=== PATIENT | male | born 1960 | race Caucasian/White ===

== ENCOUNTER → 2017-03-19 | Outpatient (CLI) | payer MEDICAID | LOC: BMCIMAGING 15:25 | PROVIDERS: ATTEND Family Medicine | DX: S49.92XA Unspecified injury of left shoulder and upper arm, initial encounter (principal); S89.92XA Unspecified injury of left lower leg, initial encounter; S99.912A Unspecified injury of left ankle, initial encounter; M19.012 Primary osteoarthritis, left shoulder ==

== ENCOUNTER 2017-03-20 21:31 | Emergency (ER) | payer MEDICAID ==
[2017-03-20 21:47] VITALS: RESP 16
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
[2017-03-20 22:23] LABS: HEMATOCRIT 41.5 % (40.0-51.0); HEMOGLOBIN 14.6 g/dL (13.7-17.5); MEAN CELL HEMOGLOBIN CONCENTR. 35.2 g/dL (32.4-36.7); MEAN CELL VOLUME 88.1 fL (81.5-99.8); RED BLOOD CELL COUNT 4.71 10^6/uL (4.40-6.38); RED CELL DISTRIBUTION WIDTH 12.7 % (11.5-15.2)
[2017-03-20 22:34] LABS: ANION GAP 12 mEq/L (8-16); CALCIUM 9.6 mg/dL (8.5-10.4); CARBON DIOXIDE 25 mEq/l (22-31); CHLORIDE 104 mEq/L (97-110); CREATININE 1.2 mg/dL (0.7-1.3); GLOMERULAR FILTRATION RATE > 60; GLUCOSE 112 mg/dL (70-100); POTASSIUM 4.3 mEq/L (3.5-5.2); SODIUM 141 mEq/L (134-144)
[2017-03-20 22:48] VITALS: TEMP 98.1
[2017-03-21] MEDS ORDERED: CYCLOBENZAPRINE 10MG PREPACK#3 BTL TAKEHOME ONE (00:05)
[2017-03-21 00:23] VITALS: BP 154/88; PULSE 87; O2SAT 97
== END 2017-03-21 00:31 | disposition home or self-care (01) ==
DX: S80.12XA Contusion of left lower leg, initial encounter (principal); V27.0XXA Motorcycle driver injured in collision with fixed or stationary object in nontraffic accident, initial encounter

== ENCOUNTER 2017-08-15 13:36 | Day surgery (SDC) | payer MEDICAID ==
[2017-08-15] MEDS ORDERED: FAMOTIDINE 20 MG TAB PO ONE (13:40)
[2017-08-15] MEDS ORDERED: NS 1,000 ML IV ONE (13:40)
[2017-08-15] MEDS ORDERED: diphenhydrAMINE 25 MG CAP PO ONE (13:40)
[2017-08-15] MEDS ORDERED: ASPIRIN EC 325 MG TAB PO ONE (13:40)
[2017-08-15] MEDS ORDERED: DIAZEPAM 5 MG TAB PO ONE (13:40)
--- NOTE | 2017-08-15 14:03 | CPEKG ---
Heart Rate: 93 RR Interval: 645 P-R Interval: 144 QRSD Interval: 90 QT Interval: 368 QTC Interval: 458 P Thermal: 67 QRS Thermal: 45 T Wave Thermal: 46 EKG Severity - NORMAL ECG - EKG Impression: SINUS RHYTHM Electronically Signed By: Deborah Medellin 15-Aug-2017 14:28:22
[2017-08-15 14:20] LABS: % IMMATURE GRANULYOCYTES 0.4 % (0.0-1.1); ABSOLUTE IMMATURE GRANULOCYTES 0.03 10^3/uL (0.00-0.10); ADD DIFF? NO; ADD MORPH? NO; ADD SCAN? NO; ATYPICAL LYMPHOCYTE FLAG 10 (0-99); FRAGMENT RBC FLAG 0 (0-99); HEMATOCRIT 42.4 % (40.0-51.0); HEMOGLOBIN 15.1 g/dL (13.7-17.5); LEFT SHIFT FLG 0 (0-99); LIPEMIA HEMOLYSIS FLAG 90 (0-99); MEAN CELL HEMOGLOBIN 31.2 pg (27.9-34.1); MEAN CELL HEMOGLOBIN CONCENTR. 35.6 g/dL (32.4-36.7); MEAN CELL VOLUME 87.6 fL (81.5-99.8); MEAN PLATELET VOLUME 9.8 fL (8.7-11.7); PLATELET CLUMPS FLAG 0 (0-99); PLATELET COUNT 241 10^3/uL (150-400); RED BLOOD CELL COUNT 4.84 10^6/uL (4.40-6.38)
[2017-08-15 14:30] LABS: PROTIME(PATIENT) 13.4 SEC (12.0-15.0)
[2017-08-15 14:36] LABS: ANION GAP 12 mEq/L (8-16); CALCIUM 9.4 mg/dL (8.5-10.4); CARBON DIOXIDE 28 mEq/l (22-31); CHLORIDE 103 mEq/L (97-110); CHOLESTEROL 181 mg/dL (140-220); CHOLESTEROL/HDL RATIO 4.21 RATIO (1.00-4.97); CREATININE 1.2 mg/dL (0.7-1.3); GLOMERULAR FILTRATION RATE > 60; GLUCOSE 97 mg/dL (70-100); HIGH DENSITY LIPOPROTEIN 43 mg/dL (40-65); LDL/HDL RATIO 2.35 RATIO (1.00-3.64); LOW DENSITY LIPOPROTEIN 101 mg/dL (80-100); NON-HIGH DENSITY LIPOPROTEIN 138 mg/dL (90-129); SODIUM 143 mEq/L (134-144); TRIGLYCERIDE 187 mg/dL (40-150); VERY LOW DENSITY LIPOPROTEINS 37 mg/dL (8-25)
[2017-08-15] MEDS ORDERED: LIDOCAINE 1% 300 MG/30 ML SDV ONE (15:05)
[2017-08-15] MEDS ORDERED: fentaNYL 100 MCG/2 ML INJ ONE (15:06)
[2017-08-15] MEDS ORDERED: IOPAMIDOL (ISOVUE-370) 150 ML BTL IV ONE ×2 (15:06→16:05)
[2017-08-15] MEDS ORDERED: MIDAZOLAM 2 MG/2 ML VIAL ONE (15:06)
--- NOTE | 2017-08-15 15:10 | PDPROPOC ---
Sedation Plan of Care Sedation Plan of Care: vital signs stable, mental status noted, patient educated of risks, benefits, alternatives, patient can tolerate sedation ASA Classification: ASA 2 Planned drugs: fentanyl, midazolam Mallampati Score: Class 2 Mallampati Reference Image: Patient passed 3-3-2 rule?: Yes
--- NOTE | 2017-08-15 15:13 | PDGENHP ---
History & Physical History of Present Illness: 56 year old gentleman with hx of hyperlipidemia and family hx of cad with ongoing complaints of chest pressure. Abnormal ETT with ST depression and chest pressure that persisted into the recovery phase. Pertinent Past, Social, Family History: Hyperlipidemia Relevant Physical Exam: normal exam.
[2017-08-15] MEDS ORDERED: NITROGLYCERIN 0.4 MG BTL SL PRN (16:11)
[2017-08-15] MEDS ORDERED: HYDROCODONE/APAP 5/325 TAB PO PRN (16:11)
[2017-08-15] MEDS ORDERED: ATROPINE SULFATE 1 MG/10 ML SYR IVP PRN (16:11)
[2017-08-15] MEDS ORDERED: ONDANSETRON 4 MG/2 ML VIAL IVP PRN (16:11)
[2017-08-15] MEDS ORDERED: OXYCODONE/APAP 5/325 TAB PO PRN (16:11)
--- NOTE | 2017-08-16 01:49 | GPN ---
[f rep st] PROCEDURE NOTE DATE OF PROCEDURE: 08/15/2017 PROCEDURE PERFORMED: Diagnostic left heart catheterization. INDICATION FOR LEFT HEART CATHETERIZATION: Exertional chest tightness with ECG changes on exercise t readmill Donnell protocol stress test coupled with ongoing atypical complaints of substernal chest pres sure in the setting of multiple coronary artery disease risk factors, including hyperlipidemia and fa alanis history of premature coronary artery disease. PROCEDURE: After informed consent was obtained, the patient was brought to the cardiac catheterizati on lab where he was prepped and draped in sterile fashion. Using 1% lidocaine, the right groin was a nesthetized. Using the modified Seldinger technique, a 6-Occitan catheter was placed into the right c ommon femoral artery without complications. A JL4 catheter was used to take images of the left coron ada anatomy in multiple projections. JL4 catheter was exchanged over a guidewire for a JR4 catheter. JR4 catheter was used to take images of the right coronary anatomy. The JR4 catheter was used to t sandra images of the right coronary anatomy in multiple projections. JR4 catheter was exchanged over a guidewire for an angled pigtail catheter. Angled pigtail catheter was used to cross the aortic valve . Left ventriculogram was performed. LVEDP was assessed, and aortic valve gradient was assessed on pull-back. Angled pigtail catheter was removed over a wire without complications. Imaging of the [facility] common femoral artery angiography was obtained demonstrating appropriate placement of the 6-Frenc h sheath above the bifurcation below the inguinal ligament. The patient tolerated the procedure well . There were no postoperative complications. FINDINGS: 1. Left main normal size and caliber, bifurcates into the left anterior descending and left circumfl ex coronary artery. There is no evidence of coronary disease within the left main. 2. Left anterior descending artery gives rise to a moderate-sized 1st diagonal branch. There is no evidence of coronary disease within the left anterior descending or diagonal branch. 3. Circumflex vessel is a large caliber dominant vessel with a large 1st obtuse marginal branch. Th ere is no evidence of coronary disease within the circumflex or obtuse marginal branch. 4. The right coronary artery bifurcates into a PDA and PLV. There is no evidence of coronary diseas e within the right coronary artery. HEMODYNAMICS: LVEF 60% to 65%. LVEDP 22 mmHg. Aortic valve gradient none. CONCLUSION: 1. Normal coronary arteries. 2. Normal left ventricular function. 3. Appropriate placement of catheter above the bifurcation below the inguinal ligament. Acceptable for site for device closure. PLAN: Patient will recover in the [facility] and be discharged home after 4 hours. Will continue focus on optimal medical management of hyperlipidemia. /[id number]/MODL
== END 2017-08-15 19:50 | disposition home or self-care (01) ==
LOC: FCATH 13:36
PROVIDERS: ATTEND Internal Medicine Cardiovascular Disease
DX: R07.9 Chest pain, unspecified (principal); R94.39 Abnormal result of other cardiovascular function study; E78.2 Mixed hyperlipidemia; R06.09 Other forms of dyspnea; E03.9 Hypothyroidism, unspecified; F32.9 Major depressive disorder, single episode, unspecified; F41.9 Anxiety disorder, unspecified; E66.9 Obesity, unspecified; Z68.30 Body mass index [BMI] 30.0-30.9, adult; Z82.49 Family history of ischemic heart disease and other diseases of the circulatory system
CPT/HCPCS: C1760; J1644; J2250; J3010; Q9967

== ENCOUNTER → 2017-12-07 | Outpatient (CLI) | payer MEDICAID | LOC: FIMAGING 10:48 | PROVIDERS: ATTEND Specialist | DX: C61 Malignant neoplasm of prostate (principal) | CPT/HCPCS: 78306; A9503 ==